=== PATIENT | female | born 1965 | race Caucasian/White ===

== ENCOUNTER 2019-11-13 15:26 | Inpatient (IN) | payer MEDICAID ==
[~2019-11-13] VITALS: Ht 167.6 cm; Wt 81.2 kg
--- NOTE | 2019-11-13 15:40 | NUR ---
PT REC'D TO ER [facility]IA [facility] IV STARTED 20G RT AC LABS DRAWN SENT TO LAB NAUSEA VOMITTING AWAITING EVALUATION BY ER PROVIDER.
[2019-11-13] MEDS ORDERED: ONDANSETRON HCL/PF 4 MG/2 ML VIAL ONE (15:45)
[2019-11-13] MEDS ORDERED: LORAZEPAM INJ 2 MG/ML VIAL ONE ×2 (15:50→16:53)
[2019-11-13] MEDS ORDERED: LORAZEPAM INJ 2 MG/ML VIAL IV ONE ×2 (16:00→17:00)
[2019-11-13] MEDS ORDERED: ONDANSETRON HCL/PF 4 MG/2 ML VIAL IVP ONE (16:00)
[2019-11-13] MEDS ORDERED: IV NS 0.9% 1,000 ML BAG IV ONE ×2 (16:00→18:30)
--- NOTE | 2019-11-13 16:02 | NUR ---
ATIVAN 1 MG IVP AND IV FLUIDS ZOFRAN 4 MG IVP
[2019-11-13 16:03] LABS: BASOPHILS # (AUTO) 0.1 /CMM (0.0-0.2); BASOPHILS % (AUTO) 0.5 % (0.0-2.0); EOSINOPHILS % (AUTO) 2.6 % (0.0-6.0); HEMATOCRIT 39 % (33-45); HEMOGLOBIN 13.4 g/dL (11.5-14.8); LYMPHOCYTES # (AUTO) 6.6 /CMM (0.8-4.8); LYMPHOCYTES % (AUTO) 60.1 % (20.0-44.0); MEAN CORPUSCULAR HGB CONC 34 g/dl (31.0-36.0); MEAN CORPUSCULAR VOLUME 89 fL (82-100); MONOCYTES # (AUTO) 0.5 /CMM (0.1-1.30); MONOCYTES % (AUTO) 4.6 % (2.0-12.0); NEUTROPHILS # (AUTO) 3.5 /CMM (1.8-8.9); NEUTROPHILS % (AUTO) 32.2 % (43.0-81.0); PLATELET COUNT (AUTO) 300 /CMM (150-450)
--- NOTE | 2019-11-13 16:04 | NUR ---
SENT TO CT
[2019-11-13 16:14] LABS: APPEARANCE,URINE CLEAR (CLEAR); BILIRUBIN,URINE NEGATIVE (NEGATIVE); BLOOD, URINE NEGATIVE Ery/uL (NEGATIVE); COLOR,URINE OTHER (YELLOW); KETONES,URINE NEGATIVE (NEGATIVE); LEUKOCYTE ESTERASE ,URINE NEGATIVE (NEGATIVE); NITRITE, URINE POSITIVE (NEGATIVE); PROTEIN,URINE NEGATIVE (NEGATIVE); UGLUCOSE NEGATIVE (NEGATIVE); UROBILINOGEN,URINE 0.2 EU/dL (0.2)
[2019-11-13 16:21] LABS: CALCIUM, SERUM 8.8 mg/dL (8.5-10.1); CARBON DIOXIDE 24 mmol/L (21-32); CHLORIDE 100 mmol/L (98-107); CREATININE 0.7 mg/dL (0.6-1.3); GLUCOSE 191 mg/dL (74-106); POTASSIUM 3.2 mmol/L (3.5-5.1); SODIUM SERUM 136 mmol/L (136-145); UREA NITROGEN, BLOOD 14 mg/dL (7-18)
[2019-11-13 16:22] LABS: BACTERIA,URINE Few /HPF (None Seen); RBC,URINE 0-2 /HPF (0-2); SQUAMOUS EPITHELIAL CELL,UR Few /HPF (None Seen); WBC,URINE 0-2 /HPF (0-3)
[2019-11-13 16:23] LABS: MUCUS,URINE Few /LPF (None Seen)
[2019-11-13 16:28] LABS: ALANINE AMINOTRANSFERASE 29 U/L (12-78); ALBUMIN 3.8 g/dL (3.4-5.0); ALKALINE PHOSPHATASE 73 U/L (46-116); ASPARTATE AMINOTRANSFERASE 19 U/L (15-37); BILIRUBIN,DIRECT 0.1 mg/dL (0.0-0.2); BILIRUBIN,TOTAL 0.3 mg/dL (0.2-1.0); LIPASE 108 U/L (73-393); TOTAL PROTEIN, SERUM 7.4 g/dL (6.4-8.2)
--- NOTE | 2019-11-13 16:28 | NUR ---
PT FAMILY AT BEDSIDE VSS
--- NOTE | 2019-11-13 16:29 | NUR ---
CALLED NURSING SUP FOR TELE BED.
[2019-11-13] MEDS ORDERED: CEFTRIAXONE 2 G in IV D5W 50 ML IV ONE (16:30)
[2019-11-13] MEDS ORDERED: INSU100V27 SQ (16:45)
[2019-11-13] MEDS ORDERED: INSU100V7 SQ (16:45)
[2019-11-13 16:58] LABS: THYROID STIMULATING HORMONE 3.487 uIU/mL (0.358-3.74)
[2019-11-13 17:02] LABS: ACETAMINOPHEN 0 ug/ml (10-30); SALICYLATE 2.1 mg/dL (2.8-20.0)
--- NOTE | 2019-11-13 17:02 | NUR ---
PT ATE 4 GUMMYBEARS . ROCHPHIN 1 GM IVPB PER MD ATIVAN 1 GM IVP
[2019-11-13 17:03] LABS: ALCOHOL, BLOOD < 3 mg/dL (0-0)
--- NOTE | 2019-11-13 17:10 | NUR ---
PAGED [facility].
--- NOTE | 2019-11-13 17:12 | NUR ---
ROOM 307-1, NURSE: ARMINDA
--- NOTE | 2019-11-13 18:02 | NUR ---
lactic acid 2.8 notified
--- NOTE | 2019-11-13 18:04 | NUR ---
called report to floor stable for transfer
--- NOTE | 2019-11-13 18:05 | NUR ---
SEEN AND EXAMINED BY Pascual GIRARD MD REQUESTED FOR MED/SURG BED. NURSING SUP. AWARE.
[2019-11-13] MEDS ORDERED: METF-440 PO (18:16)
[2019-11-13] MEDS ORDERED: MAG HYDROX/AL HYDROX/SIMETH 30 ML UDC PO PRN (18:30)
[2019-11-13] MEDS ORDERED: Z GUARD REMEDY 2 OZ OINT TP PRN (18:30)
[2019-11-13] MEDS ORDERED: MAGNESIUM HYDROXIDE 30 ML UDC PO PRN (18:30)
[2019-11-13] MEDS ORDERED: ONDANSETRON HCL/PF 4 MG/2 ML VIAL IVP PRN (18:30)
[2019-11-13] MEDS ORDERED: ACETAMINOPHEN 325 MG TABLET PO PRN (18:30)
--- NOTE | 2019-11-13 18:32 | NUR ---
NURSING SUP GAVE M/S BED 202.
[2019-11-13 19:00] VITALS: BP 120/70
--- NOTE | 2019-11-13 19:00 | NUR ---
MS HIDE WASHER NOTES Received patient from ER via [facility] accompanied by 1 ER staff. Admitted to MS 202 due to toxic encephalopathy under the service of Dr. Hou. Admission routine done. Patient's belongings inventory completed by the assigned [employer]ER. Initial skin assesssment done, no skin issues identified at this time. Patient is AOx1, responsive to speech, lethargic, unable to provide adequate health information. Kept on bed clean, dry and comfortable. With NS infusing well, to gravity, peripheral IV LAC G#20, no s/sx of infiltration noted. Patient respond to Yes/No questions at this time. Admission orders noted and carried out. On fall and aspiration precautions. Will continue to monitor accordingly.
[2019-11-13] MEDS: IV 1/2NS 1000 ML 1,000 ML IV PRN (21:08)
[2019-11-14] MEDS: IV 1/2NS 1000 ML 1,000 ML IV PRN (05:09)
[2019-11-14 06:10] LABS: BASOPHILS % (AUTO) 0.4 % (0.0-2.0); EOSINOPHILS % (AUTO) 1.6 % (0.0-6.0); HEMATOCRIT 40 % (33-45); HEMOGLOBIN 13.5 g/dL (11.5-14.8); LYMPHOCYTES # (AUTO) 3.1 /CMM (0.8-4.8); LYMPHOCYTES % (AUTO) 41.6 % (20.0-44.0); MEAN CORPUSCULAR HGB CONC 34 g/dl (31.0-36.0); MEAN CORPUSCULAR VOLUME 90 fL (82-100); MONOCYTES # (AUTO) 0.4 /CMM (0.1-1.30); MONOCYTES % (AUTO) 5.1 % (2.0-12.0); NEUTROPHILS # (AUTO) 3.8 /CMM (1.8-8.9); NEUTROPHILS % (AUTO) 51.3 % (43.0-81.0); PLATELET COUNT (AUTO) 261 /CMM (150-450); RED BLOOD CELL COUNT(AUTO) 4.43 MIL/uL (4.0-5.2); WHITE BLOOD COUNT (AUTO) 7.4 K/uL (4.3-11.0)
[2019-11-14 06:36] LABS: ALBUMIN 3.1 g/dL (3.4-5.0); BILIRUBIN,TOTAL 0.4 mg/dL (0.2-1.0); CALCIUM, SERUM 8.3 mg/dL (8.5-10.1); CREATININE 0.5 mg/dL (0.6-1.3); PHOSPHORUS 3.2 mg/dL (2.5-4.9); POTASSIUM 4.2 mmol/L (3.5-5.1); TOTAL PROTEIN, SERUM 6.5 g/dL (6.4-8.2)
--- NOTE | 2019-11-14 06:56 | NUR ---
MS RN CLOSING NOTES Patient asleep on bed, easily awaken. Noted able to reposition self. A/O x4, conversant at this time. Denies any discomfort at this time. No new complaint made. All nursing needs attended. Kept on bed clean, dry and comfortable. On fall and aspiration precautions. Endorsed.
[2019-11-14 08:00] VITALS: BP 126/76
[2019-11-14] MEDS ORDERED: DEXTROSE 50%-WATER 50 ML DISP.SYRIN IV PRN (08:00)
--- NOTE | 2019-11-14 08:01 | NUR ---
RN MS NOTES PT IN BED, AWAKE, ALERT AND ORIENTED, NO COMPLAINT AT THIS TIME, BREATHING PATTERN NORMAL, IV FLUIDS INFUSING WELL, FAMILY AT BEDSIDE, ASSISTED WITH BEDPAN USE, SEEN AND EXAMINED BY DR. TORRES, PLAN FOR DISCHARGE TODAY IF ABLE TO TOLERATE FOOD AND AMBULATE.
[2019-11-14] MEDS: INSULIN REGULAR, HUMAN 100 UNIT/ML 3 ML VIAL SQ PRN ×2 (09:25→12:18)
[2019-11-14] MEDS: BLOOD SUGAR DIAGNOSTIC 1 EACH STRIP IN SCH ×2 (09:29→12:34)
--- NOTE | 2019-11-14 09:53 | NUR ---
RN MS NOTES PT AWAKE, ALERT AND ORIENTED, NO COMPLAINT OF PAIN, RESPIRATIONS NORMAL ON ROOM AIR, ABLE TO AMBULATE WITH SLOW AND STEADY GAIT TO THE BATHOOM, ATE HER BREAKFAST, TOLERATED WELL, WILL CONTINUE TO MONITOR.
--- NOTE | 2019-11-14 12:58 | NUR ---
RN MS NOTES PT IN BED, AWAKE, ALERT AND ORIENTED, EATING LUNCH, TOLERATING WELL, ABLE TO AMBULATE TO THE BATHROOM WITH STEADY GAIT NEEDED, CALL LIGHT WITHIN REACH, IV FLUIDS INFUSING WELL.
--- NOTE | 2019-11-14 14:15 | NUR ---
RN MS NOTES PT AWAKE, ALERT AND ORIENTED, DENIES PAIN, RESPIRATIONS NORMAL AND NOT LABORED, ABLE TO AMBULATE WITH STEADY GAIT TO THE BATHROOM, PT ABLE TO WALK ALONG THE HALLWAY INDEPENDENTLY WITH PHYSICAL THERAPY, TOLERATES CURRENT DIET, STATED THAT SHE IF FEELING A LOT BETTER TODAY AND WOULD LIKE TO GO HOME, DISCHARGE ORDER GIVEN BY DR. TORRES, DISCHARGE AND MEDICATION INSTRUCTIONS PROVIDED TO PT, PT WILL GO AND SEE HER PRIMARY CARE PHYSICIAN, VERBALIZED UNDERSTANDING, BELONGINGS ACCOUNTED FOR, LEFT WITH FAMILY MEMBERS IN STABLE CONDITION.
== END 2019-11-14 14:15 | disposition home or self-care (01) | DRG 812 ==
LOC: ER 15:59 → TELE 17:24 → MEDSG2 18:34
PROVIDERS: ADMIT Internal Medicine; ATTEND Internal Medicine
DX: T40.7X1A Poisoning by cannabis (derivatives), accidental (unintentional), initial encounter (principal); G92 Toxic encephalopathy; Y92.9 Unspecified place or not applicable; E11.9 Type 2 diabetes mellitus without complications; I10 Essential (primary) hypertension; Z79.4 Long term (current) use of insulin; Z79.84 Long term (current) use of oral hypoglycemic drugs; K76.0 Fatty (change of) liver, not elsewhere classified; F12.229 Cannabis dependence with intoxication, unspecified
CPT/HCPCS: 36415; 70450-TC; 71045-TC; 80048-TC; 80053-TC; 80061-TC; 80076-TC; 80305; 81000-TC; 82140-TC; 82550-TC; 82962-TC; 83605-TC; 83690-TC; 83735-TC; 84100-TC; 84443-TC; 84484-TC; 84703-TC; 85025-TC; 85730-TC; 87040-TC; 87081-TC; 87086-TC; 97116-TC; 97530-TC; G0378; G0480; J0696; J1815; J2060; J2405; J3490; J7030; J7060